=== PATIENT | male | born 1970 | race African-American/Black ===

== ENCOUNTER 2016-07-23 21:48 | Emergency (ER) | payer BC ==
[~2016-07-23] VITALS: Ht 182.9 cm; Wt 97.8 kg
[~2016-07-23 21:48] MED LIST: ASPI-770 PO; CARV25TA12 PO; FURO20TA3 PO; GLIM2TAB2 PO; LISI-170 PO; METF10002 PO
[2016-07-23 22:22] LABS: PH, VENOUS 7.414 pH (7.320-7.420)
[2016-07-23 22:24] LABS: HEMOGLOBIN 14.9 g/dL (13.7-18.0)
[2016-07-23] MEDS ORDERED: SODIUM CHLORIDE 0.9% 1,000ML IVBOLUS ONE (22:30)
[2016-07-23] MEDS ORDERED: INSULIN REGULAR 100 UNITS/ML, 3ML VIAL SQ-INSULIN ONE (22:30)
[2016-07-23] MEDS ORDERED: INSULIN REGULAR 100 UNITS/ML, 3ML VIAL ONE ×2 (22:35→23:16)
[2016-07-23 22:36] LABS: ASPARTATE AMINO TRANSFERASE 18 U/L (15-37); BLOOD UREA NITROGEN 14 mg/dL (7-18)
[2016-07-23 22:43] LABS: DIFF TOTAL CELLS COUNTED 100 CELL DIFF
[2016-07-23 22:46] LABS: LARGE PLATELETS 1+; VERIFY COUNTS? YES
[2016-07-23] MEDS ORDERED: INSULIN REGULAR 100 UNITS/ML, 3ML VIAL IVPush ONE (23:30)
[2016-07-24] MEDS ORDERED: INSULIN REGULAR 100 UNITS/ML, 3ML VIAL ONE (00:12)
[2016-07-24] MEDS ORDERED: INSULIN REGULAR 100 UNITS/ML, 3ML VIAL IVPush ONE (00:30)
[2016-07-24 01:21] VITALS: BP 112/69
== END 2016-07-24 02:03 | disposition home or self-care (01) ==
LOC: ED 23:44
DX: E11.65 Type 2 diabetes mellitus with hyperglycemia (principal); I11.9 Hypertensive heart disease without heart failure; Z79.82 Long term (current) use of aspirin; Z87.891 Personal history of nicotine dependence
CPT/HCPCS: 36415; 80053; 81003; 82010; 82803; 82962; 85025; 96361; 96372; 96374; 96376; 99284; J7030

== ENCOUNTER 2016-08-06 18:21 | Inpatient (IN) | payer BC, MEDICAID ==
[~2016-08-06] VITALS: Ht 182.9 cm; Wt 94.1 kg
[2016-08-06] MEDS ORDERED: SODIUM CHLORIDE FLUSH 10ML SYR IVF ONE (19:30)
[2016-08-06] MEDS ORDERED: SODIUM CHLORIDE 0.9% 1,000ML IVBOLUS ONE (19:30)
[2016-08-06 19:54] LABS: ABG COLLECTION SITE LEFT BRACHIAL
[2016-08-06 20:11] LABS: BLOOD UREA NITROGEN 19 mg/dL (7-18)
[2016-08-06 20:19] LABS: ASPARTATE AMINO TRANSFERASE 22 U/L (15-37)
[2016-08-06 20:21] LABS: IS PT STATUS REG ER OR PRE ER? YES
[2016-08-06] MEDS ORDERED: SODIUM CHLORIDE 0.9%, 500ML IVBOLUS ONE (21:00)
[2016-08-06] MEDS ORDERED: INSULIN REGULAR 100 UNITS/ML, 3ML VIAL IVPush ONE (21:00)
[2016-08-06] MEDS ORDERED: INSULIN SINGLE DOSE, ER SQ-INSULIN ONE (21:10)
[2016-08-06] MEDS ORDERED: POLYETHYLENE GLYCOL 17 GM PACKET PO PRN (23:00)
[2016-08-06] MEDS ORDERED: ONDANSETRON 2MG/ML, 2ML IVP PRN (23:00)
[2016-08-06] MEDS ORDERED: ACETAMINOPHEN 325 MG TABLET PO PRN (23:00)
[2016-08-06 23:53] VITALS: BP 152/93
[2016-08-07] MEDS: SODIUM CHLORIDE 0.9% 1,000 ML IV SCH ×2 (00:36→10:00)
[2016-08-07 00:42] VITALS: BP 152/93
[2016-08-07] MEDS: GUAIFENESIN/DM 200-20MG, 10ML UDC PO PRN ×2 (00:48→16:38)
[2016-08-07] MEDS: CARVEDILOL 25 MG TABLET PO SCH ×3 (00:49→21:37)
[2016-08-07] MEDS: FUROSEMIDE 20 MG TABLET PO SCH ×3 (00:49→21:37)
[2016-08-07] MEDS: INSULIN ASPART 100 UNITS/ML, PEN SQ-INSULIN SCH ×5 (00:50→21:39)
[2016-08-07] MEDS: HEPARIN 5,000 UNITS/ML, 1ML SQ SCH ×3 (00:52→16:38)
[2016-08-07] MEDS: AZITHROMYCIN 500 MG in SODIUM CHLORIDE 0.9% 250 ML IV SCH (00:54)
[2016-08-07] MEDS ORDERED: PNEUMOCOCCAL 23 VACCINE IM-VACC ONE (05:30)
[2016-08-07 05:58] LABS: ASPARTATE AMINO TRANSFERASE 17 U/L (15-37); BLOOD UREA NITROGEN 15 mg/dL (7-18)
[2016-08-07 07:51] VITALS: BP 119/78
[2016-08-07] MEDS: ASPIRIN 81 MG TABLET CHEW PO SCH (07:54)
[2016-08-07] MEDS: SENNA/DOCUSATE TABLET PO SCH (07:54)
[2016-08-07] MEDS: LISINOPRIL 20 MG TABLET PO SCH (07:54)
[2016-08-07] MEDS: BISACODYL 10 MG SUPP PR SCH (11:03)
[2016-08-07] MEDS: INSULIN DETEMIR 100 UNITS/ML, PEN SQ-INSULIN SCH ×2 (12:30→21:39)
[2016-08-07 13:36] LABS: OCCBLD OBC PASS
[2016-08-07 14:37] VITALS: BP 107/69
[2016-08-07 19:43] VITALS: BP 129/87
[2016-08-08] MEDS: HEPARIN 5,000 UNITS/ML, 1ML SQ SCH ×2 (01:12→08:42)
[2016-08-08] MEDS: AZITHROMYCIN 500 MG in SODIUM CHLORIDE 0.9% 250 ML IV SCH (01:12)
[2016-08-08 01:33] VITALS: BP 113/73
[2016-08-08 07:46] VITALS: BP 123/81
[2016-08-08] MEDS: INSULIN ASPART 100 UNITS/ML, PEN SQ-INSULIN SCH ×3 (08:37→16:05)
[2016-08-08] MEDS: LISINOPRIL 20 MG TABLET PO SCH (08:40)
[2016-08-08] MEDS: ASPIRIN 81 MG TABLET CHEW PO SCH (08:40)
[2016-08-08] MEDS: CARVEDILOL 25 MG TABLET PO SCH (08:40)
[2016-08-08] MEDS: SENNA/DOCUSATE TABLET PO SCH (08:40)
[2016-08-08] MEDS: FUROSEMIDE 20 MG TABLET PO SCH (08:41)
[2016-08-08] MEDS: BISACODYL 10 MG SUPP PR SCH (08:41)
[2016-08-08] MEDS ORDERED: INSULIN DETEMIR 100 UNITS/ML, PEN SQ-INSULIN SCH (09:30)
[2016-08-08 14:04] VITALS: BP 116/74
[2016-08-08] MEDS ORDERED: AZIT250T PO (14:53)
[2016-08-08] MEDS ORDERED: INSU100I18 SQ-INSULIN (14:53)
[2016-08-08] MEDS ORDERED: CEFD300C2 PO (14:53)
[2016-08-08] MEDS ORDERED: INSU100I28 SQ-INSULIN (14:53)
== END 2016-08-08 16:55 | disposition home or self-care (01) | DRG 202 ==
LOC: ED 22:20 → EDIP 23:38 → 3NE 08-07 00:17 → DCLOUNGE 08-08 16:15
PROVIDERS: ADMIT Internal Medicine; ATTEND Internal Medicine
DX: J20.9 Acute bronchitis, unspecified (principal); E87.1 Hypo-osmolality and hyponatremia; E87.2 Acidosis; I50.22 Chronic systolic (congestive) heart failure; N17.9 Acute kidney failure, unspecified; I42.9 Cardiomyopathy, unspecified; I38 Endocarditis, valve unspecified; E11.65 Type 2 diabetes mellitus with hyperglycemia; E78.5 Hyperlipidemia, unspecified; I11.0 Hypertensive heart disease with heart failure; M10.9 Gout, unspecified; E86.0 Dehydration; Z82.49 Family history of ischemic heart disease and other diseases of the circulatory system; Z95.810 Presence of automatic (implantable) cardiac defibrillator; Z87.891 Personal history of nicotine dependence; Z23 Encounter for immunization; Z79.84 Long term (current) use of oral hypoglycemic drugs; Z79.82 Long term (current) use of aspirin; Z79.899 Other long term (current) drug therapy
CPT/HCPCS: 36415; 36600; 71010; 71250; 80053; 82272; 82378; 82803; 82962; 83036; 83605; 84484; 85025; 85379; 87040; 87070; 87077; 87186; 87205; 90732; 93005; 96361; 96374; J0456; J1644; J1815; J7030; J7040; J7050

== ENCOUNTER 2017-07-26 20:45 | Emergency (ER) | payer BC ==
[~2017-07-26] VITALS: Ht 182.9 cm; Wt 104.5 kg
[~2017-07-26 20:45] MED LIST changes: +AZIT250T PO; +CEFD300C37 PO; +INSU100I18 SQ-INSULIN; +INSU100I28 SQ-INSULIN
[2017-07-26 22:12] LABS: BASOPHILS # (AUTO) 0.02 x10^3/uL (0-0.1); BASOPHILS % (AUTO) 0 % (0-1); EOSINOPHILS # (AUTO) 0.12 x10^3/uL (0-0.4); EOSINOPHILS % (AUTO) 2 % (1-7); LYMPHOCYTES # (AUTO) 1.97 x10^3/uL (1-3.4); LYMPHOCYTES % (AUTO) 27 % (22-44); MD NO; MEAN CORPUSCULAR HEMOGLOBIN 32.8 pg (27.5-34.5); MEAN CORPUSCULAR HGB CONC 34.1 g/dL (33.2-36.2); MEAN CORPUSCULAR VOLUME 96.3 fL (81-97); MEAN PLATELET VOLUME 8.6 fL (7.4-10.4); MONOCYTES # (AUTO) 0.57 x10^3/uL (0.2-0.8); MONOCYTES % (AUTO) 8 % (2-9); NEUTROPHILS # (AUTO) 4.57 x10^3/uL (1.8-6.8); NEUTROPHILS % (AUTO) 63 % (42-75); PLATELET COUNT 226 x10^3/uL (130-400); RED BLOOD COUNT 4.41 x10^6/uL (4.38-5.82); RED CELL DISTRIBUTION WIDTH 14.2 % (9.4-14.8)
[2017-07-26 22:23] LABS: MICROSCOPIC NOT IND
[2017-07-26 22:24] LABS: ALANINE AMINOTRANSFERASE 26 U/L (12-78); ALBUMIN 3.6 g/dL (3.4-5.0); ANION GAP 8 mmol/L (5-15); CALCIUM 8.6 mg/dL (8.5-10.1); CHLORIDE 104 mmol/L (98-107); CREATININE 1.24 mg/dL (0.7-1.3)
[2017-07-26 22:26] LABS: ALKALINE PHOSPHATASE 90 U/L (45-117); BILIRUBIN,TOTAL 0.4 mg/dL (0.2-1.0); TOTAL PROTEIN 7.9 g/dL (6.4-8.2)
[2017-07-26 22:29] LABS: CULTURE INDICATED? NO
[2017-07-26] MEDS ORDERED: SODIUM CHLORIDE FLUSH 10ML SYR IVF ONE (23:30)
[2017-07-26] MEDS ORDERED: OMNIPAQUE 350 MG/ML, 100ML BOTTLE ONE (23:45)
[2017-07-27 00:11] VITALS: BP 124/77
== END 2017-07-27 01:04 | disposition home or self-care (01) ==
LOC: ED 07-27 00:35
DX: K52.9 Noninfective gastroenteritis and colitis, unspecified (principal); E11.65 Type 2 diabetes mellitus with hyperglycemia; E78.5 Hyperlipidemia, unspecified; I10 Essential (primary) hypertension; S39.012A Strain of muscle, fascia and tendon of lower back, initial encounter; X58.XXXA Exposure to other specified factors, initial encounter; Y93.89 Activity, other specified; Y99.8 Other external cause status; Y92.89 Other specified places as the place of occurrence of the external cause
CPT/HCPCS: 36415; 71046; 74177; 80053; 81003; 85025; 99285; Q9967

== ENCOUNTER 2018-06-25 19:42 | Emergency (ER) | payer BC ==
[~2018-06-25] VITALS: Ht 182.9 cm; Wt 96.0 kg
[~2018-06-25 19:42] MED LIST changes: -ASPI-770 PO; +ASPI81TA59 PO
[2018-06-25] MEDS ORDERED: SODIUM CHLORIDE 0.9% 1,000ML IVBOLUS ONE ×2 (20:30→21:30)
[2018-06-25] MEDS ORDERED: SODIUM CHLORIDE FLUSH 10ML SYR IVF ONE (20:30)
[2018-06-25 20:51] LABS: MEAN CORPUSCULAR HEMOGLOBIN 32.9 pg (27.5-34.5); MEAN CORPUSCULAR HGB CONC 34.4 g/dL (33.2-36.2); MEAN CORPUSCULAR VOLUME 95.6 fL (81-97); PLATELET COUNT 188 x10^3/uL (130-400); RED BLOOD COUNT 4.51 x10^6/uL (4.38-5.82); RED CELL DISTRIBUTION WIDTH 12.8 % (9.4-14.8)
[2018-06-25 21:00] LABS: ANION GAP 6 mmol/L (5-15); CALCIUM 9.2 mg/dL (8.5-10.1); CHLORIDE 97 mmol/L (98-107)
[2018-06-25 21:02] LABS: CREATININE 1.59 mg/dL (0.7-1.3)
[2018-06-25 21:10] LABS: BASOPHILS # (AUTO) 0.02 x10^3/uL (0-0.1); BASOPHILS % (AUTO) 0 % (0-1); EOSINOPHILS # (AUTO) 0.16 x10^3/uL (0-0.4); EOSINOPHILS % (AUTO) 3 % (1-7); LYMPHOCYTES # (AUTO) 1.46 x10^3/uL (1-3.4); LYMPHOCYTES % (AUTO) 26 % (22-44); MD SCAN; MONOCYTES # (AUTO) 0.28 x10^3/uL (0.2-0.8); MONOCYTES % (AUTO) 5 % (2-9); NEUTROPHILS # (AUTO) 3.64 x10^3/uL (1.8-6.8); NEUTROPHILS % (AUTO) 65 % (42-75)
[2018-06-25 21:14] LABS: ACETONE, SERUM Trace (10mg/dL) mg/dL (Negative)
--- NOTE | 2018-06-25 21:16 | NUR ---
FIRST CONTACT WITH PT. PT REPORTS 'HIGH' READING ON HOME MONITOR. HX OF DM2 TAKES 'WEEKLY SHOT' FOR SUGAR CONTROL DENIES N/V/D/PAIN. +POLYURIA/POLYDIPSIA. IV ESTABLSHED. FIRST LITER KHURRAM. UA COLLECTED AND SENT TO LAB. REPORT TO [facility]
--- NOTE | 2018-06-25 21:17 | NUR ---
Report from Nilda Alcantar RN
--- NOTE | 2018-06-25 21:25 | NUR ---
Patient resting in [facility]. NAD.
[2018-06-25 21:30] LABS: MICROSCOPIC NOT IND
[2018-06-25] MEDS ORDERED: INSULIN REGULAR 100 UNITS/ML, 3ML VIAL SQ-INSULIN SCH (21:30)
[2018-06-25 21:35] LABS: CULTURE INDICATED? NO
[2018-06-25] MEDS ORDERED: INSULIN REGULAR 100 UNITS/ML, 3ML VIAL ONE (22:46)
--- NOTE | 2018-06-25 22:56 | NUR ---
VS UPDATED. PT. MEDICATED PER JUN. THIS RN ASSUMED CARE OF PT. AT 2154 FROM [facility]. FSBS WAS CHECKED BY KINSE[facility] AT THAT TIME. PER DR. BUI RECHECK FSBS IN ABOUT 30 MIN AND NO NEED FOR 2,000ML BOLUS PT. IS ABLE TO DRINK PO FLUIDS. PT. PROVIDED WITH WATER PER MD. ALL MONITORS IN PLACE. CALL LIGHT IN REACH. ALL SAFETY MEASURES OBSERVED.
[2018-06-25 23:47] VITALS: BP 135/86
== END 2018-06-25 23:48 | disposition home or self-care (01) ==
LOC: ED 21:43
DX: E11.65 Type 2 diabetes mellitus with hyperglycemia (principal); E78.5 Hyperlipidemia, unspecified; E11.22 Type 2 diabetes mellitus with diabetic chronic kidney disease; I13.10 Hypertensive heart and chronic kidney disease without heart failure, with stage 1 through stage 4 chronic kidney disease, or unspecified chronic kidney disease; N18.9 Chronic kidney disease, unspecified; I42.9 Cardiomyopathy, unspecified
CPT/HCPCS: 36415; 80048; 81003; 82010; 82040; 82800; 82962; 85025; 93005; 96360; 96372; 99284; J7030